=== PATIENT | female | born 1985 | race Caucasian/White ===

== ENCOUNTER 2018-11-26 11:45 | Emergency (ER) | payer MEDICAID ==
[2018-11-26] MEDS: HYDROCODONE/APAP (5/325) TAB PO (12:21)
[2018-11-26] MEDS: ONDANSETRON (ODT) 4 MG TAB ODT (12:21)
== END 2018-11-26 14:10 | disposition home or self-care (01) ==
LOC: FTE 11:45
DX: S22.31XA Fracture of one rib, right side, initial encounter for closed fracture (principal); F17.210 Nicotine dependence, cigarettes, uncomplicated; W11.XXXA Fall on and from ladder, initial encounter; Y92.9 Unspecified place or not applicable
CPT/HCPCS: 71045; 71100; 99283-25